=== PATIENT | male | born 1985 | race Caucasian/White ===

== ENCOUNTER 2018-12-18 17:07 | Emergency (ER) | payer OTHER ==
[~2018-12-18] VITALS: Ht 185 cm; Wt 113.3 kg
[~2018-12-18 17:07] MED LIST: OXYC-109 PO
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
[2018-12-18] MEDS ORDERED: TETANUS,DIPTH,PERTUSS P/F (BOOSTRIX) 0.5 ML VIAL IM ONE (17:45)
[2018-12-18] MEDS ORDERED: IBUPROFEN 800 MG (MOTRIN) TAB PO ONE (18:00)
[2018-12-18] MEDS ORDERED: CEPHALEXIN 250 MG (KEFLEX) CAP PO ONE (18:00)
[2018-12-18] MEDS ORDERED: CEPH-507 PO (18:04)
--- NOTE | 2018-12-18 18:07 | Diagnostic Imaging Report ---
INDICATION: Finger injury. COMPARISON: None. EXAMINATION: Three views of the left fingers were obtained. FINDINGS: No fracture, dislocation or foreign body. Articular surfaces are normal. IMPRESSION: No fracture or foreign body identified. Dictated by: Dictated on workstation # [id number]
[2018-12-18 18:30] VITALS: BP 135/86
== END 2018-12-18 18:30 | disposition home or self-care (01) ==
LOC: EDUNIT# 17:07 → ER FS 17:10
DX: S61.231A Puncture wound without foreign body of left index finger without damage to nail, initial encounter (principal); Z91.041 Radiographic dye allergy status; W45.8XXA Other foreign body or object entering through skin, initial encounter
CPT/HCPCS: 29130; 73140; 90471; 90715

== ENCOUNTER 2019-01-27 15:56 | Emergency (ER) | payer OTHER ==
[~2019-01-27] VITALS: Ht 187.9 cm; Wt 113.3 kg
[~2019-01-27 15:56] MED LIST changes: +CEPH-507 PO
[2019-01-27] MEDS ORDERED: KETOROLAC 30 MG/ML VIAL IVP ONE (16:30)
[2019-01-27] MEDS ORDERED: LORazepam INJ 2 MG/ML (ATIVAN) VIAL IVP ONE (16:30)
[2019-01-27] MEDS ORDERED: NS IV 1000 ML 1,000 ML IV SCH (16:30)
[2019-01-27] MEDS ORDERED: HOLD METFORMIN - RECEIVED CONTRAST 20 ML VIAL IV SCH (16:45)
[2019-01-27] MEDS ORDERED: NS 100 ML (IVPB) BAG IV ONE (16:45)
[2019-01-27] MEDS ORDERED: IOHEXOL 350 MG/ML 150 ML (OMNIPAQUE 350) VIAL IV ONE (16:45)
[2019-01-27] MEDS ORDERED: CATHETER FLUSH 10 ML SYR IV PRN (16:45)
[2019-01-27 16:53] LABS: BASOPHILS % (AUTO) 1 % (0-10); EOSINOPHILS # (AUTO) 0.1 10^3/uL (0.0-0.3); EOSINOPHILS % (AUTO) 2 % (0-10); HEMATOCRIT 47 % (40-54); HEMOGLOBIN 16.1 G/DL (13.3-17.7); LYMPHOCYTES # (AUTO) 0.9 X 10^3 (1.0-4.0); LYMPHOCYTES % (AUTO) 16 % (12-44); MEAN CORPUSCULAR HEMOGLOBIN 30 PG (25-34); MEAN CORPUSCULAR HGB CONC 34 G/DL (32-36); MEAN CORPUSCULAR VOLUME 90 FL (80-99); MEAN PLATELET VOLUME 8.9 FL (7.4-10.4); MONOCYTES # (AUTO) 0.9 X 10^3 (0.0-1.0); MONOCYTES % (AUTO) 17 % (0-12); NEUTROPHILS # (AUTO) 3.6 X 10^3 (1.8-7.8); NEUTROPHILS % (AUTO) 64 % (42-75); PLATELET COUNT 288 10^3/uL (130-400); RED CELL DISTRIBUTION WIDTH 12.3 % (10.0-14.5); WHITE BLOOD COUNT 5.6 10^3/uL (4.3-11.0)
[2019-01-27 17:04] LABS: CLARITY,URINE CLOUDY; COLOR,URINE BROWN; GLUCOSE, URINE (UA) NEGATIVE (NEGATIVE); PH,URINE 5.5 (5-9); PROTEIN,URINE 2+ (NEGATIVE)
[2019-01-27 17:05] LABS: BILIRUBIN,URINE 1+ (NEGATIVE); KETONES,URINE NEGATIVE (NEGATIVE); LEUKOCYTE ESTERASE ,URINE TRACE (NEGATIVE); NITRITE,URINE NEGATIVE (NEGATIVE); RBC,URINE TNTC /HPF; WBC,URINE RARE /HPF
[2019-01-27 17:15] LABS: ALANINE AMINOTRANSFERASE 46 U/L (0-55); ALBUMIN 4.7 GM/DL (3.2-4.5); ALKALINE PHOSPHATASE 62 U/L (40-136); BILIRUBIN,TOTAL 0.5 MG/DL (0.1-1.0); BUN/CREATININE RATIO 11; CALCIUM 9.9 MG/DL (8.5-10.1); CARBON DIOXIDE 26 MMOL/L (21-32); CHLORIDE 101 MMOL/L (98-107); CREATININE SERUM 0.92 MG/DL (0.60-1.30); GFR ESTIMATED > 60; GLUCOSE 126 MG/DL (70-105); POTASSIUM 4.3 MMOL/L (3.6-5.0); SODIUM 140 MMOL/L (135-145); TOTAL PROTEIN 7.7 GM/DL (6.4-8.2)
[2019-01-27] MEDS ORDERED: ONDANSETRON 4 MG/2 ML (SDV) Z0FRAN IVP ONE (17:15)
[2019-01-27] MEDS ORDERED: ONDANSETRON 4 MG/2 ML (SDV) Z0FRAN IVP PRN (17:15)
[2019-01-27] MEDS ORDERED: morphine INJ 10 MG/ML 1ML (SYR OR VIAL) IVP STA (17:15)
--- NOTE | 2019-01-27 17:26 | Diagnostic Imaging Report ---
PATIENT HISTORY: Ureteral stents. TECHNIQUE: Frontal view of the abdomen. COMPARISON: CT from 2009. FINDINGS: There are bilateral ureteral stents which appear to be in normal position in the bladder. The proximal right ureteral stent appears to be at the ureteropelvic junction and the left appears to be at the collecting system. There are multiple calculi in the kidneys bilaterally, right more than left. No dilated loops of small bowel are seen. There are calcifications in the pelvis, which may represent phleboliths. No acute osseous abnormality is seen. IMPRESSION: 1. Bilateral nephrolithiasis, right greater than left, with ureteral stents as described above. Dictated by: Dictated on workstation # [id number]
--- NOTE | 2019-01-27 17:28 | Diagnostic Imaging Report ---
PROCEDURE: CT angiography of the chest with contrast. TECHNIQUE: Multiple contiguous axial images were obtained through the chest after uneventful bolus administration of intravenous contrast. 3D reconstructed CTA MIP acquisitions were also performed. Auto Exposure Controls were utilized during the CT exam to meet ALARA standards for radiation dose reduction. INDICATION: Chest pain. FINDINGS: There is good opacification of the aorta and pulmonary arteries. There are no filling defects to indicate pulmonary emboli. No evidence of aortic aneurysm or dissection. The lungs are well aerated. There are no infiltrates or masses. No pneumothorax or pleural effusion. No mediastinal or hilar adenopathy of pathologic size. No bony abnormality. IMPRESSION: Normal CT angiography of the chest. Dictated by: Dictated on workstation # [id number]
[2019-01-27 17:36] LABS: BAND NEUTROPHILS 6 %; BASOPHILS % (MANUAL) 0 %; EOSINOPHILS % (MANUAL) 2 %; LYMPHOCYTES % (MANUAL) 25 %; METAMYELOCYTES % 1 %; MONOCYTES % (MANUAL) 12 %; NEUTROPHILS % (MANUAL) 54 %; RBC MORPH NORMAL
[2019-01-27] MEDS ORDERED: OXYC1TAB87 PO (17:41)
[2019-01-27] MEDS ORDERED: ONDA4TAB11 PO (17:41)
--- NOTE | 2019-01-27 17:41 | ED General ---
General Chief Complaint: - Urinary Stated Complaint: BACK PAIN, MALE PAIN, CHEST NUMBNESS, SOB Nursing Triage Note: Pt presents to ED POV reporting pain in bilateral kidney area and Left testicle. Recent admit to [facility] for same and 7 kidney stones found with bilateral hydronephrosis. Pt has has has bilat ureteral J stents placed. Laser to L kidney 7 mm stone. Pt anxious and reports chest pain and left arm numbness over last 40 min. Nursing Sepsis Screen: No Definite Risk History of Present Illness Date Seen by Provider: Jan 27, 2019 Time Seen by Provider: 16:45 Initial Comments Patient is a 33-year-old male with history of kidney stones with bilateral ureteral stent placement one week ago at [facility] who presents with left-sided pelvic pain radiating to left testicle. Symptom onset was earlier morning. Patient denies testicular tenderness swelling redness or injury. Reports persistent intermittent hematuria without urinary retention since stents replaced. No fever chills, nausea vomiting or sweats. Patient does report palpitations, described as pounding and fast, and tingling to left arm. Chest pain and arm numbness began after testicular pain began. No history of arrhythmia, DVT, PE, CAD.No leg pain or swelling. No other acute symptoms or complaints. Timing/Duration: 4-6 Hours Severity: Moderate Modifying Factors: improves with Medication, improves with Movement Associated Systoms: Nausea/Vomiting Allergies and Home Medications Allergies Coded Allergies: No Known Drug Allergies (Unverified , 01/27/19) Home Medications Cephalexin 500 Mg Capsule, 500 MG PO TID Prescribed by: FAREED PEREZ on 12/18/18 180 Oxycodone Hcl/Acetaminophen 1 Each Tablet, 1 EACH PO Q6H Prescribed by: REECE GUTIERREZ MD on 10/03/09 1815 Patient Home Medication List Home Medication List Reviewed: Yes Review of Systems Review of Systems Constitutional: see HPI EENTM: see HPI Respiratory: see HPI Cardiovascular: see HPI Gastrointestinal: see HPI Genitourinary: see HPI Skin: see HPI Psychiatric/Neurological: See HPI Hematologic/Lymphatic: See HPI Immunological/Allergic: see HPI Past Dyhfouc-Qazpcs-Logyzf Hx Past Med/Social Hx: Reviewed Nursing Past Med/Soc Hx Patient Social History Alcohol Use: Denies Use Recreational Drug Use: No Smoking Status: Never a Smoker 2nd Hand Smoke Exposure: No Recent Foreign Travel: No Contact w/Someone Who Travel: No Recent Infectious Disease Expo: No Recent Hopitalizations: No Physical Abuse: No Sexual Abuse: No Mistreated: No Fear: No Immunizations Up To Date Tetanus Booster (TDap): More than 5yrs Date of Influenza Vaccine: Jan 18, 2019 Seasonal Allergies Seasonal Allergies: No Past Medical History Surgeries: Yes (Laser and ESWL of kidney stone, ureteral stents, back surgery, ORIF R ankle) Adenoidectomy, Orthopedic, Tonsillectomy Respiratory: No Cardiac: No Neurological: Yes Neuropathy Genitourinary: Yes Kidney Infection, Kidney Stones Gastrointestinal: No Musculoskeletal: Yes Arthritis, Gout Endocrine: No HEENT: No Cancer: No Psychosocial: Yes ADD/ADHD, Anxiety, Depression Integumentary: No Blood Disorders: No Physical Exam Vital Signs Vital Signs - First Documented 01/27/19 16:00 Temp 37.4 Pulse 123 Resp 23 B/P (MAP) 141/95 (110) Pulse Ox 96 O2 Delivery Room Air Capillary Refill : Less Than 3 Seconds Height, Weight, BMI Height: '" Weight: lbs. oz. kg; 32.00 BMI Method:Stated General Appearance: No Apparent Distress, Anxious, Moderate Distress (secondary to [aom) Eyes: Bilateral Eye Normal Inspection, Bilateral Eye PERRL, Bilateral Eye EOMI HEENT: PERRL/EOMI, TMs Normal Neck: Normal Inspection, Supple Respiratory: Chest Non Tender, Lungs Clear Cardiovascular: Regular Rate, Rhythm, Tachycardia Gastrointestinal: Normal Bowel Sounds, Non Tender, Soft Back: Normal Inspection, No CVA Tenderness Extremity: Normal Capillary Refill Neurologic/Psychiatric: Alert, Oriented x3 Skin: Warm/Dry Focused Exam Sepsis Stage: Ruled Out Progress/Results/Core Measures Suspected Sepsis Recent Fever Within 48 Hours: No Infection Criteria Present: None New/Unexplained Altered Menta: No Sepsis Screen: No Definite Risk SIRS Temperature: Pulse: 123 Respiratory Rate: 23 Laboratory Tests 01/27/19 16:42: White Blood Count 5.6 Blood Pressure 141 /95 Mean: 110 Laboratory Tests 01/27/19 16:42: Creatinine 0.92, Platelet Count 288, Total Bilirubin 0.5 Results/Orders Lab Results Laboratory Tests Test 01/27/19 16:24 01/27/19 16:42 01/27/19 16:45 Range/Units Glucometer 91 70-110 MG/DL White Blood Count 5.6 4.3-11.0 10^3/uL Red Blood Count 5.29 4.35-5.85 10^6/uL Hemoglobin 16.1 13.3-17.7 G/DL Hematocrit 47 40-54 % Mean Corpuscular Volume 90 80-99 FL Mean Corpuscular Hemoglobin 30 25-34 PG Mean Corpuscular Hemoglobin Concent 34 32-36 G/DL Red Cell Distribution Width 12.3 10.0-14.5 % Platelet Count 288 130-400 10^3/uL Mean Platelet Volume 8.9 7.4-10.4 FL Neutrophils (%) (Auto) 64 42-75 % Lymphocytes (%) (Auto) 16 12-44 % Monocytes (%) (Auto) 17 H 0-12 % Eosinophils (%) (Auto) 2 0-10 % Basophils (%) (Auto) 1 0-10 % Neutrophils # (Auto) 3.6 1.8-7.8 X 10^3 Lymphocytes # (Auto) 0.9 L 1.0-4.0 X 10^3 Monocytes # (Auto) 0.9 0.0-1.0 X 10^3 Eosinophils # (Auto) 0.1 0.0-0.3 10^3/uL Basophils # (Auto) 0.0 0.0-0.1 10^3/uL Sodium Level 140 135-145 MMOL/L Potassium Level 4.3 3.6-5.0 MMOL/L Chloride Level 101 98-107 MMOL/L Carbon Dioxide Level 26 21-32 MMOL/L Anion Gap 13 5-14 MMOL/L Blood Urea Nitrogen 10 7-18 MG/DL Creatinine 0.92 0.60-1.30 MG/DL Estimat Glomerular Filtration Rate > 60 BUN/Creatinine Ratio 11 Glucose Level 126 H 70-105 MG/DL Calcium Level 9.9 8.5-10.1 MG/DL Corrected Calcium 8.5-10.1 MG/DL Total Bilirubin 0.5 0.1-1.0 MG/DL Aspartate Amino Transf (AST/SGOT) 22 5-34 U/L Alanine Aminotransferase (ALT/SGPT) 46 0-55 U/L Alkaline Phosphatase 62 40-136 U/L Troponin I 0.30 <0.30 NG/ML Total Protein 7.7 6.4-8.2 GM/DL Albumin 4.7 H 3.2-4.5 GM/DL Urine Color BROWN H Urine Clarity CLOUDY Urine pH 5.5 5-9 Urine Specific [place] >1.030 1.016-1.022 Urine Protein 2+ H NEGATIVE Urine Glucose (UA) NEGATIVE NEGATIVE Urine Ketones NEGATIVE NEGATIVE Urine Nitrite NEGATIVE NEGATIVE Urine Bilirubin 1+ H NEGATIVE Urine Urobilinogen 0.2 NORMAL MG/DL Urine Leukocyte Esterase TRACE NEGATIVE Urine RBC (Auto) 3+ H NEGATIVE Urine RBC TNTC H /HPF Urine WBC RARE /HPF Urine Crystals NONE /LPF Urine Bacteria NONE /HPF Urine Casts NONE /LPF Urine Mucus NEGATIVE /LPF Urine Culture Indicated NO My Orders Orders - TAHMINA SUMNER DO Ekg Tracing (01/27/19 16:17) Ua Culture If Indicated (01/27/19 16:17) Abdomen (Kub) 1 View (01/27/19 16:17) Accucheck Achs ACHS (01/27/19 16:17) Cbc And Manual Diff (01/27/19 16:24) Comprehensive Metabolic Panel (01/27/19 16:24) Troponin I Fs (01/27/19 16:24) Lorazepam Injection (Ativan Injection) (01/27/19 16:30) Ct Angio Chest W (01/27/19 16:24) Ketorolac Injection (Toradol Injection) (01/27/19 16:30) Ns Iv 1000 Ml (Sodium Chloride 0.9%) (01/27/19 16:30) Iohexol Injection (Omnipaque 350 Mg/Ml 1 (01/27/19 16:45) Received Contrast (Hold Metformin- Contr (01/27/19 16:45) Sodium Chloride Flush (Catheter Flush Sy (01/27/19 16:45) Ns (Ivpb) (Sodium Chloride 0.9% Ivpb Bag (01/27/19 16:45) Morphine Injection (Morphine Injection (01/27/19 17:15) Ondansetron Injection (Zofran Injectio (01/27/19 17:15) Ondansetron Injection (Zofran Injectio (01/27/19 17:15) Medications Given in ED Current Medications Medications Dose Ordered Sig/Rosalina Route Start Time Stop Time Status Last Admin Dose Admin Iohexol 125 ml ONCE ONCE IV 01/27/19 16:45 01/27/19 16:46 DC 10/25/19 17:18 125 ML Ketorolac Tromethamine 15 mg ONCE ONCE IVP 01/27/19 16:30 01/27/19 16:31 DC 01/27/19 16:53 15 MG Lorazepam 1 mg ONCE ONCE IVP 01/27/19 16:30 01/27/19 16:31 DC 01/27/19 16:54 1 MG Sodium Chloride 10 ml NEEDED PRN IV 01/27/19 16:45 01/27/19 17:18 10 ML Sodium Chloride 100 ml ONCE ONCE IV 01/27/19 16:45 01/27/19 16:46 DC 01/27/19 17:18 80 ML Vital Signs/I&O 01/27/19 01/27/19 16:00 16:53 Temp 37.4 37.4 Pulse 123 Resp 23 B/P (MAP) 141/95 (110) Pulse Ox 96 O2 Delivery Room Air Capillary Refill : Less Than 3 Seconds Blood Pressure Mean: 110 Point of Care Testing Finger Stick Blood Glucose: 91 Blood Glucose Action Taken: told Dr. Sumner Departure Communication (Admissions) Patient's testicular pain consistent with passage of kidney stone. Bilateral ureteral stents in good position on KUB. Palpitations, arm numbness likely secondary to anxiety. Patient has multiple psychosocial stressors in addition to his current medical conditions. CT angiogram ordered and pending to rule out pulmonary emboli. Ativan, morphine, Toradol and IV fluids given with norm alization of vital signs. Patient resting comfortably. Discrete discharge home with supportive care pending CT results. Impression Primary Impression: Testicular pain Additional Impressions: Ureteral calculi Palpitations Anxiety state Disposition: HOME, SELF-CARE Condition: Stable Departure-Patient Inst. Referrals: NO,LOCAL PHYSICIAN (PCP/Family) Primary Care Physician Patient Instructions: Kidney Stones (DC), Palpitations Add. Discharge Instructions: Please increase fluids and continue Percocet for pain and Zofran as needed for nausea. Follow up with urologist next week as scheduled. Return to the ED if new or worsening symptoms. All discharge instructions reviewed with patient and/or family. Voiced understanding. Scripts Ondansetron (Ondansetron Odt) 4 Mg Tab.rapdis 4 MG PO Q6H, #10 TAB Prov: TAHMINA SUMNER DO 01/27/19 Oxycodone HCl/Acetaminophen (Percocet 5-325 mg Tablet) 1 Each Tablet 1 TAB PO Q4H for PAIN-MODERATE MDD 6 TABS for 7 Days, #20 TAB Prov: TAHMINA SUMNER DO 01/27/19 TAHMINA SUMNER DO Jan 27, 2019 17:40
[2019-01-27 18:00] VITALS: BP 121/72
[2019-01-27] MEDS ORDERED: fentaNYL INJECTION 100 MCG/2 ML AMP IVP ONE (18:00)
== END 2019-01-27 18:00 | disposition home or self-care (01) ==
LOC: EDUNIT# 15:56 → ER FS 15:58
DX: N13.2 Hydronephrosis with renal and ureteral calculous obstruction (principal); F41.9 Anxiety disorder, unspecified; F90.9 Attention-deficit hyperactivity disorder, unspecified type; F32.9 Major depressive disorder, single episode, unspecified; G62.9 Polyneuropathy, unspecified; M10.9 Gout, unspecified; Z90.89 Acquired absence of other organs; Z96.0 Presence of urogenital implants
CPT/HCPCS: 36415; 71275; 74018; 80053; 81000; 82962; 84484; 85007; 85027; 93005; 96374; 96375

== ENCOUNTER 2020-06-04 22:47 | Emergency (ER) | payer OTHER ==
[~2020-06-04 22:47] MED LIST changes: +ONDA4TAB11 PO; +OXYC1TAB87 PO
[2020-06-04] MEDS ORDERED: CYCLOBENZAPRINE 10 MG (FLEXERIL) TAB PO STA (23:07)
[2020-06-04] MEDS ORDERED: PRD50T PO (23:11)
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
[2020-06-04] MEDS ORDERED: KETOROLAC 60 MG/2 ML VIAL IM ONE (23:15)
[2020-06-04] MEDS ORDERED: HYDROcodone/APAP 5 MG/325 MG (LORTAB) TAB PO ONE (23:45)
[2020-06-04 23:48] VITALS: BP 133/98
== END 2020-06-04 23:48 | disposition home or self-care (01) ==
LOC: EDUNIT# 22:47 → ER FS 22:48
DX: S86.912A Strain of unspecified muscle(s) and tendon(s) at lower leg level, left leg, initial encounter (principal); S86.911A Strain of unspecified muscle(s) and tendon(s) at lower leg level, right leg, initial encounter; S76.912A Strain of unspecified muscles, fascia and tendons at thigh level, left thigh, initial encounter; S76.911A Strain of unspecified muscles, fascia and tendons at thigh level, right thigh, initial encounter; Z79.52 Long term (current) use of systemic steroids; V89.2XXA Person injured in unspecified motor-vehicle accident, traffic, initial encounter
CPT/HCPCS: 99284; L1830